=== PATIENT | female | born 1995 | race Caucasian/White ===

== ENCOUNTER → 2020-10-11 | Outpatient (CLI) | payer OTHER | END | disposition home or self-care (01) | LOC: CFH 08:39 | PROVIDERS: ATTEND Physician Assistant | DX: N83.292 Other ovarian cyst, left side (principal); N93.9 Abnormal uterine and vaginal bleeding, unspecified; N94.6 Dysmenorrhea, unspecified | CPT/HCPCS: 76830 ==

== ENCOUNTER 2020-10-12 10:47 | Emergency (ER) | payer OTHER ==
[~2020-10-12] VITALS: Ht 170.2 cm; Wt 85.6 kg
[2020-10-12 11:29] LABS: BASOPHILS % (AUTO) 1 % (0-1); EOSINOPHILS % (AUTO) 2 % (1-7); LYMPHOCYTES % (AUTO) 33 % (22-44); MD NO; MEAN CORPUSCULAR HEMOGLOBIN 21.7 pg (27.0-34.8); MEAN CORPUSCULAR HGB CONC 31.7 g/dL (32.4-35.8); MEAN PLATELET VOLUME 8.2 fL (7.4-10.4); MONOCYTES % (AUTO) 7 % (2-9); NEUTROPHILS % (AUTO) 58 % (42-75); PLATELET COUNT 329 x10^3/uL (130-400); RED BLOOD COUNT 6.05 x10^6/uL (3.82-5.3); RED CELL DISTRIBUTION WIDTH 15.2 % (9.6-15.2)
[2020-10-12 11:41] LABS: ALANINE AMINOTRANSFERASE 25 U/L (12-78); ALBUMIN 3.8 g/dL (3.4-5.0); ANION GAP 4 mmol/L (5-15); CHLORIDE 107 mmol/L (98-107)
[2020-10-12 11:45] LABS: ALKALINE PHOSPHATASE 57 U/L (45-117); BILIRUBIN,TOTAL 0.3 mg/dL (0.2-1.0); TOTAL PROTEIN 8.1 g/dL (6.4-8.2)
--- NOTE | 2020-10-12 13:18 | NUR ---
PATIENT WALKED BACK FROM [facility] WITH CHIEF C/O VAGINAL BLEEDING X17 DAYS. PATIENT REPORTS LOWER ABD CRAMPING. LMP August, PATIENT STARTED BLEEDING AGAIN September. PATIENT TOOK TEST THURSDAY AND IT WAS NEGATIVE. CLARKE, JANEL, CALL LIGHT WITHIN REACH.
--- NOTE | 2020-10-12 13:23 | NUR ---
[facility] AT BEDSIDE FOR EVALUATION.
[2020-10-12 13:48] VITALS: BP 102/70
--- NOTE | 2020-10-12 13:56 | NUR ---
Patient given discharge instructions and [facility] referral and they have confirmed that they understand the instructions. Patient stable and ambulatory with steady gait from ED to private vehicle.
== END 2020-10-12 13:57 | disposition home or self-care (01) ==
LOC: ED 12:22
DX: N93.9 Abnormal uterine and vaginal bleeding, unspecified (principal); R53.1 Weakness
CPT/HCPCS: 36415; 80053; 84703; 85025; 99283

== ENCOUNTER 2021-02-01 11:06 | Emergency (ER) | payer OTHER ==
[~2021-02-01] VITALS: Ht 170.2 cm; Wt 80.0 kg
--- NOTE | 2021-02-01 22:02 | NUR ---
PT TO ROOM 16 AT THIS TIME. CARE ASSUMED. PT REPORTS BEING DIAGNOISED WITH COVID PNUEMONIA AND WENT FOR HER FOLLOW UP WITH PRIMARY AND WAS REFERED TO THE ER FOR WORSENING PNUEMONIA. PT IS ON O2 AT HOME. NADN AT THIS TIME. PT DENIES FEVER, CHILLS, COUGH.
[2021-02-01 23:30] VITALS: BP 116/68
== END 2021-02-01 23:33 | disposition home or self-care (01) ==
LOC: ED 12:00
DX: U07.1 COVID-19 (principal); R94.31 Abnormal electrocardiogram [ECG] [EKG]
CPT/HCPCS: 93005; 99283